=== PATIENT | female | born 1990 | race Asian ===

== ENCOUNTER 2016-05-29 18:58 | Emergency (ER) | payer MEDICAID, OTHER ==
[2016-05-29 19:06] VITALS: BP 109/67; PULSE 69; RESP 20; TEMP 98.6; O2SAT 98
--- NOTE | 2016-05-29 19:54 | EDPHY ---
H & P Stated Complaint: needle stick at work HPI/ROS: Chief complaint: Needle stick at work History of present illness: This is a 26-year-old female who presents to the emergency department for needlestick sustained at work. 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 According to patient the dentist had used a needle to anesthetize a patient's tooth for a routine procedure. The needle had been set down. She accidentally stuck her left thumb on the needle. She did wash the wound. Apparently there was a discussion with the patient who stated she was healthy with no known diseases. However patient was discharged and was not formally tested for infectious diseases with blood studies. Patient states she feels well. She states her tetanus is up-to-date. She states her hepatitis-B series is up-to-date. She reports immunizations overall are up-to-date. - Personal History LMP (Females 10-55): 8-14 Days Ago Tetanus Vaccine Date: 2009 - Medical/Surgical History Hx Asthma: No Hx Chronic Respiratory Disease: No Hx Diabetes: No Hx Cardiac Disease: No Hx Renal Disease: No Hx Cirrhosis: No Hx Alcoholism: No Hx HIV/AIDS: No Hx Splenectomy or Spleen Trauma: No - Social History Smoking Status: Never smoked - Physical Exam Exam: General Appearance: Alert and no distress. Eyes: Pupils equal and round no injection. Respiratory: Chest is non tender, lungs are clear to auscultation. Cardiac: regular rate and rhythm Gastrointestinal: Abdomen is soft and non tender, no masses, bowel sounds normal. Musculoskeletal: Neck is supple and non tender. Extremities have full range of motion and are non tender. Skin: Small puncture wound pad of left finger Constitutional: Initial Vital Signs Temperature (C) 37 C 05/29/16 19:04 Heart Rate 69 05/29/16 19:04 Respiratory Rate 20 05/29/16 19:04 Blood Pressure 109/67 05/29/16 19:04 O2 Sat (%) 98 05/29/16 19:04 Allergies/Adverse Reactions: No Known Allergies Allergy (Unverified 05/29/16 19:04) Home Medications: Medication Instructions Recorded Ortho-Cyclen 05/29/16 Medical Decision Making ED Course/Re-evaluation: Patient is discussed with my secondary supervising physician Dr. Reed Brown. Patient presents to the emergency department after sustaining a needlestick at the dentist's office where she works. Patient is healthy. She reports her immunizations are up-to-date. She states the patient stated she was healthy although she cannot objectively confirm this. I have consulted with Infectious Disease, Dr. Amaya. She does not recommend post exposure prophylaxis given the very low risk of transmission. I have discussed with patient that this is likely a low risk of transmission. Never the less, I have offered her post exposure prophylaxis. The risks and benefits have been discussed. She has declined. I have discussed if she changes her mind she needs to return within 48 hours to start post exposure prophylaxis. She is otherwise asked to follow up with worker's compensation or infectious disease for recheck. Referral information is discussed. 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 Home care is discussed. Return precautions are given. Patient voiced understanding and agreement with plan. Departure - Departure Disposition: Home, Routine, Self-Care Clinical Impression: Needle stick injury Qualifiers: Encounter type: initial encounter Qualified Code(s): W27.3XXA - Contact with needle (sewing), initial encounter Condition: Good Instructions: Needle Stick Injuries (ED) Additional Instructions: Follow-up with worker's compensation or infectious disease on Wednesday for recheck If symptoms worsen or new symptoms develop return to the emergency room If you change your mind and want post exposure prophylaxis return to the emergency room Referrals: NONE *PRIMARY CARE P,. [Primary Care Provider] - As per Instructions Chantale Amaya MD [Medical Doctor] - As per Instructions
== END 2016-05-29 20:30 | disposition home or self-care (01) ==
DX: S69.92XA Unspecified injury of left wrist, hand and finger(s), initial encounter (principal); W27.3XXA Contact with needle (sewing), initial encounter; Y92.69 Other specified industrial and construction area as the place of occurrence of the external cause; Y99.0 Civilian activity done for income or pay; Y93.89 Activity, other specified